=== PATIENT | female | born 2000 | race Two or more races ===

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

== ENCOUNTER 2018-01-28 21:55 | Emergency (ER) | payer SELFPAY ==
[2018-01-28] MEDS ORDERED: IBUPROFEN 600 MG TABLET PO ONE (23:11)
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
[2018-01-29 01:51] VITALS: BP 129/73
== END 2018-01-29 03:09 | disposition home or self-care (01) ==
LOC: ER 21:55
DX: M25.561 Pain in right knee (principal); X50.1XXA Overexertion from prolonged static or awkward postures, initial encounter; Y92.812 Truck as the place of occurrence of the external cause; J45.909 Unspecified asthma, uncomplicated
CPT/HCPCS: 99283

== ENCOUNTER 2019-03-26 19:59 | Inpatient (IN) | payer MEDICAID ==
[2019-03-26 20:40] LABS: ABSOLUTE BASOPHILS # (AUTO) 0.1 10^3/uL (0.0-0.2); ABSOLUTE LYMPHOCYTES (AUTO) 1.7 10^3/uL (0.5-4.7); ABSOLUTE MONOCYTES (AUTO) 1.3 10^3/uL (0.1-1.4); ABSOLUTE NEUT (AUTO) 6.8 10^3/uL (1.7-8.2); BASOPHILS % (AUTO) 0.7 % (0-2); EOSINOPHILS % (AUTO) 0.4 % (0-6); HEMATOCRIT 30.7 % (36.0-47.0); LYMPHOCYTES % (AUTO) 16.8 % (13-45); MEAN CORPUSCULAR HEMOGLOBIN 27.2 pg (27.0-33.4); MEAN CORPUSCULAR HGB CONC 32.6 g/dL (32.0-36.0); MEAN CORPUSCULAR VOLUME 84 fl (80-97); MONOCYTES % (AUTO) 13.1 % (3-13); PLATELET COUNT 246 10^3/uL (150-450); RED BLOOD COUNT 3.68 10^6/uL (3.72-5.28); RED CELL DISTRIBUTION WIDTH 14.7 % (11.5-14.0); TOTAL CELLS COUNTED % (AUTO) 100 %; WHITE BLOOD COUNT 9.9 10^3/uL (4.0-10.5)
[2019-03-26 20:42] LABS: APPEARANCE,URINE SLIGHTLY-CLOUDY; BILIRUBIN,URINE NEGATIVE (NEGATIVE); COLOR,URINE YELLOW; GLUCOSE, URINE NEGATIVE (NEGATIVE); KETONES,URINE NEGATIVE (NEGATIVE); LEUKOCYTE ESTERASE,URINE SMALL (NEGATIVE); NITRITE,URINE NEGATIVE (NEGATIVE); PROTEIN,URINE NEGATIVE (NEGATIVE); UR PRO/CREAT RATIO RESULT 0.5 mg/mg (0.0-0.2); URINE CREATININE 46.3 mg/dL (16-327); URINE PROTEIN 22.7 mg/dL (<12); URINE SPECIFIC GRAVITY 1.005; UROBILINOGEN,URINE NEGATIVE mg/dL (<2.0)
[2019-03-26 20:53] LABS: URINE AMPHETAMINES SCREEN NEGATIVE; URINE BARBITURATES SCREEN NEGATIVE; URINE BENZODIAZEPINES SCREEN NEGATIVE; URINE COCAINE SCREEN NEGATIVE; URINE MARIJUANA (THC) SCREEN NEGATIVE; URINE METHADONE SCREEN NEGATIVE; URINE PHENCYCLIDINE SCREEN NEGATIVE
[2019-03-26 21:03] LABS: ALANINE AMINOTRANSFERASE 25 U/L (9-52); ALBUMIN 3.7 g/dL (3.5-5.0); ALKALINE PHOSPHATASE 208 U/L (38-126); ANION GAP 8 (5-19); ASPARTATE AMINO TRANSFERASE 27 U/L (14-36); BILIRUBIN,DIRECT 0.2 mg/dL (0.0-0.4); BILIRUBIN,TOTAL 0.5 mg/dL (0.2-1.3); BLOOD UREA NITROGEN 6 mg/dL (7-20); CALCIUM 9.4 mg/dL (8.4-10.2); CARBON DIOXIDE 26 mmol/L (22-30); CHLORIDE 105 mmol/L (98-107); POTASSIUM 3.3 mmol/L (3.6-5.0); SODIUM 138.8 mmol/L (137-145); TOTAL PROTEIN 6.8 g/dL (6.3-8.2); URIC ACID 5.1 mg/dL (2.5-6.2)
[2019-03-26 21:09] LABS: GLUCOSE 66 mg/dL (75-110)
[2019-03-26] MEDS ORDERED: RINGERS SOLUTION,LACTATED 1,000 ML IV PRN (21:48)
[2019-03-26] MEDS ORDERED: DINOPROSTONE 10 MG VAGINAL INSERT.SR PV ONE (21:50)
[2019-03-26] MEDS ORDERED: DINOPROSTONE 10 MG VAGINAL INSERT.SR ONE (23:05)
[2019-03-26] MEDS ORDERED: ZOLPIDEM TARTRATE 5 MG TABLET ONE (23:15)
[2019-03-26] MEDS ORDERED: ZOLPIDEM TARTRATE 5 MG TABLET PO ONE (23:30)
[2019-03-27] MEDS ORDERED: HYDRALAZINE HCL INJ/PF 20 MG/1 ML SDV ONE ×3 (00:10→21:27)
[2019-03-27] MEDS ORDERED: HYDRALAZINE HCL INJ/PF 20 MG/1 ML SDV IV ONE ×2 (01:00→17:02)
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
[2019-03-27] MEDS ORDERED: OXYTOCIN/NORMAL SALINE 20 UNIT/1,000 ML RTUINJ IV PRN (12:53)
[2019-03-27] MEDS ORDERED: MISOPROSTOL 0.2 MG TABLET ONE (13:11)
[2019-03-27] MEDS ORDERED: OXYTOCIN/NORMAL SALINE 20 UNIT/1,000 ML RTUINJ ONE (13:11)
[2019-03-27] MEDS ORDERED: OXYTOCIN 10 UNIT/ML VIAL ONE (13:11)
[2019-03-27] MEDS ORDERED: LIDOCAINE 1% INJ-PF (10 MG/ML) 30 ML SDV ONE (13:11)
[2019-03-27 18:25] LABS: ABSOLUTE BASOPHILS # (AUTO) 0.1 10^3/uL (0.0-0.2); ABSOLUTE LYMPHOCYTES (AUTO) 1.6 10^3/uL (0.5-4.7); ABSOLUTE MONOCYTES (AUTO) 1.3 10^3/uL (0.1-1.4); ABSOLUTE NEUT (AUTO) 8.7 10^3/uL (1.7-8.2); BASOPHILS % (AUTO) 0.5 % (0-2); EOSINOPHILS % (AUTO) 0.2 % (0-6); HEMATOCRIT 31.8 % (36.0-47.0); HEMOGLOBIN 10.3 g/dL (12.0-15.5); LYMPHOCYTES % (AUTO) 13.4 % (13-45); MEAN CORPUSCULAR HEMOGLOBIN 26.9 pg (27.0-33.4); MEAN CORPUSCULAR HGB CONC 32.4 g/dL (32.0-36.0); MEAN CORPUSCULAR VOLUME 83 fl (80-97); MONOCYTES % (AUTO) 10.9 % (3-13); PLATELET COUNT 234 10^3/uL (150-450); RED BLOOD COUNT 3.83 10^6/uL (3.72-5.28); RED CELL DISTRIBUTION WIDTH 14.8 % (11.5-14.0); TOTAL CELLS COUNTED % (AUTO) 100 %; WHITE BLOOD COUNT 11.6 10^3/uL (4.0-10.5)
[2019-03-27 18:44] LABS: ALANINE AMINOTRANSFERASE 25 U/L (9-52); ALBUMIN 3.7 g/dL (3.5-5.0); ALKALINE PHOSPHATASE 235 U/L (38-126); ANION GAP 10 (5-19); ASPARTATE AMINO TRANSFERASE 26 U/L (14-36); BILIRUBIN,DIRECT 0.3 mg/dL (0.0-0.4); BILIRUBIN,TOTAL 0.6 mg/dL (0.2-1.3); BLOOD UREA NITROGEN 4 mg/dL (7-20); CALCIUM 9.5 mg/dL (8.4-10.2); CARBON DIOXIDE 23 mmol/L (22-30); CHLORIDE 106 mmol/L (98-107); GLUCOSE 78 mg/dL (75-110); POTASSIUM 3.3 mmol/L (3.6-5.0); SODIUM 138.8 mmol/L (137-145); URIC ACID 4.2 mg/dL (2.5-6.2)
[2019-03-27 19:26] LABS: UR PRO/CREAT RATIO RESULT 0.5 mg/mg (0.0-0.2); URINE CREATININE 63.4 mg/dL (16-327)
[2019-03-27] MEDS ORDERED: NALBUPHINE HCL INJ 10 MG/1 ML AMPULE ONE (20:58)
[2019-03-27] MEDS ORDERED: PROMETHAZINE HCL INJ 25 MG/1 ML VIAL ONE (20:58)
[2019-03-27] MEDS ORDERED: NALBUPHINE HCL INJ 10 MG/1 ML AMPULE INJ ONE (21:11)
[2019-03-27] MEDS ORDERED: PROMETHAZINE HCL INJ 25 MG/1 ML VIAL IV ONE (21:12)
[2019-03-27] MEDS ORDERED: HYDRALAZINE HCL INJ/PF 20 MG/1 ML SDV IV PRN (21:28)
[2019-03-27] MEDS ORDERED: FENTANYL CITRATE INJ/PF 100 MCG/2 ML AMPUL ONE (22:52)
[2019-03-27] MEDS ORDERED: PHENYLEPHRINE HCL INJ/PF 10 MG/1 ML SDV ONE (22:52)
[2019-03-27] MEDS ORDERED: EPHEDRINE SULFATE INJ 50 MG/1 ML AMPULE ONE (22:53)
[2019-03-27] MEDS ORDERED: FENTANYL/BUPIVACAINE/NS/PF 300 MCG/150 ML RTUINJ EPI ONE (22:53)
[2019-03-27] MEDS ORDERED: BUPIVACAINE HCL 0.25 % INJ/PF (2.5 MG/1 ML) 30 ML VIAL ONE (22:53)
[2019-03-28] MEDS ORDERED: MAGNESIUM SULFATE 20 GM/500 ML RTUINJ IV ONE ×3 (02:49→21:20)
[2019-03-28] MEDS ORDERED: MAGNESIUM SULFATE 4 GM/100 ML RTUPB IV ONE (03:00)
[2019-03-28] MEDS ORDERED: DIPH/PERTUSS(ACELL)/TETANUS VAC/PF 0.5 ML SYR (>=10YO) IM PRN (03:02)
[2019-03-28] MEDS ORDERED: ZOLPIDEM TARTRATE 5 MG TABLET PO PRN (03:02)
[2019-03-28] MEDS ORDERED: PROMETHAZINE HCL INJ 25 MG/1 ML VIAL IV PRN (03:02)
[2019-03-28] MEDS ORDERED: DIPHENHYDRAMINE HCL 25 MG CAPSULE PO PRN (03:02)
[2019-03-28] MEDS ORDERED: MISOPROSTOL 0.2 MG TABLET PR PRN (03:02)
[2019-03-28] MEDS ORDERED: MAGNESIUM HYDROXIDE SUSP 30 ML UDCUP PO PRN (03:02)
[2019-03-28] MEDS ORDERED: OXYTOCIN/NORMAL SALINE 20 UNIT/1,000 ML RTUINJ IV PRN (03:02)
[2019-03-28] MEDS ORDERED: PROMETHAZINE HCL 25 MG SUPP.RECT PR PRN (03:02)
[2019-03-28] MEDS ORDERED: ACETAMINOPHEN 650 MG SUPP.RECT PR PRN (03:02)
[2019-03-28] MEDS ORDERED: GLYCERIN/WITCH HAZEL LEAF 1 EACH MED..WIPE TP PRN (03:02)
[2019-03-28] MEDS ORDERED: ACETAMINOPHEN WITH CODEINE #3 TABLET PO PRN ×2 (03:02)
[2019-03-28] MEDS ORDERED: NA PHOS,M-B/NA PHOS,DI-BA (ADULT) 133 ML ENEMA PR PRN (03:02)
[2019-03-28] MEDS ORDERED: PROMETHAZINE HCL 25 MG TABLET PO PRN (03:02)
[2019-03-28] MEDS ORDERED: BENZOCAINE/MENTHOL AEROSOL SPRAY 56 ML TOP PRN (03:02)
[2019-03-28] MEDS ORDERED: MEASLES,MUMPS&RUBELLA VACC/PF 0.5 ML VIAL SUBCUT PRN (03:02)
[2019-03-28] MEDS ORDERED: DIBUCAINE 1% OINTMENT 56 GM TP PRN (03:02)
[2019-03-28] MEDS ORDERED: PSEUDOEPHEDRINE HCL 30 MG TABLET PO PRN (03:02)
[2019-03-28] MEDS ORDERED: RINGERS SOLUTION,LACTATED 1,000 ML IV PRN (03:03)
--- NOTE | 2019-03-28 06:30 | Delivery Summary ---
Del Sum A-C Datetime Report Generated by CPN: 03/28/2019 06:30 DELIVERY PERSONNEL DELIVERY PERSONNEL: [id number] Delivery Doctor:: Karlie Berg MD Labor and Delivery Nurse:: Cindi Chang, RNC Labor and Delivery Nurse:: Jovana Carranzamaricarmen, RN MATERNAL INFORMATION Delivery Anesthesia: Epidural Medications After Delivery: Pitocin Drip 20 Units/1000ml NSS; Cytotec 1000mcg Per Rectum/Vagina Estimated Blood Loss (ml): 600 Maternal Complications: Other Other Maternal Complications: induction for pre-eclampsia LABOR SUMMARY EDC: 04/02/2019 00:00 No. Babies in Womb: 1 Attempted: No Labor Anesthesia: Epidural LABOR INFORMATION Reason for Induction: Pre-Eclampsia Onset of Labor: 03/27/2019 21:00 Complete Dilatation: 03/28/2019 02:20 Cervical Ripening Agents: Cervidil Oxytocin: Induction Group B Beta Strep: negative Antibiotics # of Doses: N/A Antibiotics Time of Last Dose: N/A Name of Antibiotic Given: N/A Steroids Given: None Reason Steroids Not Administered: Not Applicable MEMBRANES Membranes Rupture Method: Spontaneous Rupture of Membranes: 03/27/2019 20:42 Length of Rupture (hr): 5.93 Amniotic Fluid Color: Clear Amniotic Fluid Amount: Scant Amniotic Fluid Odor: None STAGES OF LABOR Stage 1 hr: 5 Stage 1 min: 20 Stage 2 hr: 0 Stage 2 min: 18 Stage 3 hr: 0 Stage 3 min: 4 Total Time in Labor hr: 5 Total Time in Labor min: 42 VAGINAL DELIVERY Episiotomy: None Laceration #1: Perineal Laceration Extension #1: First Degree Laceration #2: None Laceration Extension #2: N/A Laceration #3: None Laceration Extension #3: N/A Laceration Repair: Yes Laceration Repair Note: 3-0 chromic times one to repair perineal laceration. Sponge Count Correct: Yes Sharps Count Correct: Yes CSECTION DELIVERY Primary Indication: N/A Secondary Indication: N/A CSection Incidence: N/A Labor: N/A Elective: N/A CSection Incision: N/A BABY A INFORMATION Delivery Date/Time: 03/28/2019 02:38 Method of Delivery: Vaginal Born in Route : No : N/A Forceps: N/A Vacuum Extraction: N/A Shoulder Dystocia : No PRESENTATION/POSITION BABY A Presentation: Cephalic Cephalic Presentation: Vertex Vertex Position: Right Occipital Anterior Breech Presentation: N/A PLACENTA INFORMATION BABY A Placenta Delivery Time : 03/28/2019 02:42 Placenta Method of Delivery: Spontaneous Placenta Status: Delivered SCORES BABY A Heart Rate 1 min: >100 bpm Resp Effort 1 min: Good Cry Reflex Irritability 1 min: Cough or Sneeze or Pulls Away Muscle Tone 1 min: Active Motion Color 1 min: Body [place], Extremities Blue Resuscitation Effort 1 min: Tactile Stimulation SCORE 1 MIN: 9 Heart Rate 5 min: >100 bpm Resp Effort 5 min: Good Cry Reflex Irritability 5 min: Cough or Sneeze or Pulls Away Muscle Tone 5 min: Active Motion Color 5 min: Body [place], Extremities Blue SCORE 5 MIN: 9 INFORMATION BABY A Gestational Age at Delivery: 39.2 Gestational Status: Full Term- 39- 40.6 Weeks Outcome : Liveborn Condition : Stable Infant Sex: Male IDENTIFICATION BABY A Verification Date/Time: 03/28/2019 03:08 ID Band Number: [id number] Mother's Name Verified: Yes Infant RN Verifying : E. Jilek RN/ A. Killinger RN WEIGHT/LENGTH BABY A Birthweight (gm): 3476 Infant Weight (lb): 7 Weight (oz): 11 Length (in): 20.00 Length (cm): 50.80 CORD INFORMATION BABY A No. Cord Vessels: nursery RN states 2 vessels Nuchal Cord : N/A Cord Blood Taken: Yes-For Eval (Mom's Blood Type - or O+) Suction: None ASSESSMENT BABY A Infant Complications: None Physical Findings at Delivery: Within Normal Limits Infant Respirations: Appears Normal Skin to Skin: Yes Skin to Skin Time (min): 15 Night Warehouse Manager/ALS Called : No Care By: D Bellavance RN Transferred To: Remains with Mother BABY B INFORMATION : N/A SIGNATURES Signature: with User ID: [email or web address]
[2019-03-28] MEDS ORDERED: NORMAL SALINE 1000 ML 500 ML IV ONE (12:32)
[2019-03-28 13:02] LABS: ABSOLUTE LYMPHOCYTES (AUTO) 1.5 10^3/uL (0.5-4.7); ABSOLUTE MONOCYTES (AUTO) 1.7 10^3/uL (0.1-1.4); ABSOLUTE NEUT (AUTO) 12.3 10^3/uL (1.7-8.2); BASOPHILS % (AUTO) 0.3 % (0-2); EOSINOPHILS % (AUTO) 0.1 % (0-6); HEMATOCRIT 23.2 % (36.0-47.0); LYMPHOCYTES % (AUTO) 9.8 % (13-45); MEAN CORPUSCULAR HEMOGLOBIN 26.9 pg (27.0-33.4); MEAN CORPUSCULAR HGB CONC 32.4 g/dL (32.0-36.0); MEAN CORPUSCULAR VOLUME 83 fl (80-97); PLATELET COUNT 203 10^3/uL (150-450); RED CELL DISTRIBUTION WIDTH 14.6 % (11.5-14.0); SEGMENTED NEUTROPHILS % (AUTO) 78.8 % (42-78); TOTAL CELLS COUNTED % (AUTO) 100 %; WHITE BLOOD COUNT 15.5 10^3/uL (4.0-10.5)
[2019-03-28] MEDS ORDERED: PRENATAL VITAMIN W DHA CAPSULE PO ONE (13:05)
[2019-03-28] MEDS ORDERED: FERROUS SULFATE 325 MG TABLET PO ONE (13:06)
[2019-03-28] MEDS ORDERED: SENNOSIDES/DOCUSATE 8.6-50 MG 1 EACH TABLET ONE (13:06)
[2019-03-28] MEDS ORDERED: IBUPROFEN 800 MG TABLET ONE (13:06)
[2019-03-28] MEDS ORDERED: DOCUSATE SODIUM 100 MG CAPSULE ONE (13:06)
[2019-03-28] MEDS ORDERED: LABETALOL HCL 200 MG TABLET ONE (13:07)
[2019-03-28] MEDS ORDERED: NORMAL SALINE 250 ML IV PRN (13:11)
[2019-03-28 13:14] LABS: HEMOGLOBIN 7.5 g/dL (12.0-15.5)
[2019-03-28 13:15] LABS: ALANINE AMINOTRANSFERASE 22 U/L (9-52); ALBUMIN 2.8 g/dL (3.5-5.0); ALKALINE PHOSPHATASE 176 U/L (38-126); ANION GAP 6 (5-19); ASPARTATE AMINO TRANSFERASE 23 U/L (14-36); BILIRUBIN,DIRECT 0.2 mg/dL (0.0-0.4); BILIRUBIN,TOTAL 0.4 mg/dL (0.2-1.3); BLOOD UREA NITROGEN 4 mg/dL (7-20); CALCIUM 8.1 mg/dL (8.4-10.2); CARBON DIOXIDE 26 mmol/L (22-30); CHLORIDE 104 mmol/L (98-107); GLUCOSE 80 mg/dL (75-110); SODIUM 136.4 mmol/L (137-145); TOTAL PROTEIN 5.4 g/dL (6.3-8.2)
[2019-03-28] MEDS: DOCUSATE SODIUM 100 MG CAPSULE PO SCH ×2 (13:16→23:41)
[2019-03-28] MEDS: FERROUS SULFATE 325 MG TABLET PO SCH ×2 (13:17→23:41)
[2019-03-28] MEDS: IBUPROFEN 800 MG TABLET PO SCH ×2 (13:17→23:41)
[2019-03-28] MEDS: PRENATAL VITAMIN W DHA CAPSULE PO SCH (13:17)
--- NOTE | 2019-03-28 13:17 | RADIOLOGY REPORT (SQ) ---
EXAM DESCRIPTION: CHEST SINGLE VIEW COMPLETED DATE/TIME: 03/28/2019 1:07 pm REASON FOR STUDY: cp,sob COMPARISON: None. NUMBER OF VIEWS: One view. TECHNIQUE: Single frontal radiographic view of the chest acquired. LIMITATIONS: None. FINDINGS: LUNGS AND PLEURA: No opacities, masses or pneumothorax. No pleural effusion. MEDIASTINUM AND HILAR STRUCTURES: No masses. Contour normal. HEART AND VASCULAR STRUCTURES: Heart normal in size. Normal vasculature. BONES: No acute findings. HARDWARE: None in the chest. OTHER: No other significant finding. IMPRESSION: NO SIGNIFICANT RADIOGRAPHIC FINDING IN THE CHEST. TECHNICAL DOCUMENTATION: JOB ID: [id number] [employer]- All Rights Reserved Reading location - IP/workstation name: [email or web address]
[2019-03-28] MEDS: SENNOSIDES/DOCUSATE 8.6-50 MG 1 EACH TABLET PO SCH (13:18)
[2019-03-28] MEDS: LABETALOL HCL 200 MG TABLET PO SCH (13:18)
[2019-03-28 13:20] LABS: POTASSIUM 2.9 mmol/L (3.6-5.0)
--- NOTE | 2019-03-28 13:28 | Delivery Summary ---
Del Sum A-C Datetime Report Generated by CPN: 03/28/2019 13:28 DELIVERY PERSONNEL DELIVERY PERSONNEL: [id number] Delivery Doctor:: Karlie Berg MD Labor and Delivery Nurse:: Cindi Chang, RNC Labor and Delivery Nurse:: Jovana Carranzamaricarmen, RN MATERNAL INFORMATION Delivery Anesthesia: Epidural Medications After Delivery: Pitocin Drip 20 Units/1000ml NSS; Cytotec 1000mcg Per Rectum/Vagina Estimated Blood Loss (ml): 600 Delivery QBL Comment: cytotec 1000 mcg given per rectum Maternal Complications: Other Other Maternal Complications: induction for pre-eclampsia LABOR SUMMARY EDC: 04/02/2019 00:00 No. Babies in Womb: 1 Attempted: No Labor Anesthesia: Epidural LABOR INFORMATION Reason for Induction: Pre-Eclampsia Onset of Labor: 03/27/2019 21:00 Complete Dilatation: 03/28/2019 02:20 Cervical Ripening Agents: Cervidil Oxytocin: Induction Group B Beta Strep: negative Antibiotics # of Doses: N/A Antibiotics Time of Last Dose: N/A Name of Antibiotic Given: N/A Steroids Given: None Reason Steroids Not Administered: Not Applicable MEMBRANES Membranes Rupture Method: Spontaneous Rupture of Membranes: 03/27/2019 20:42 Length of Rupture (hr): 5.93 Amniotic Fluid Color: Clear Amniotic Fluid Amount: Scant Amniotic Fluid Odor: None STAGES OF LABOR Stage 1 hr: 5 Stage 1 min: 20 Stage 2 hr: 0 Stage 2 min: 18 Stage 3 hr: 0 Stage 3 min: 4 Total Time in Labor hr: 5 Total Time in Labor min: 42 VAGINAL DELIVERY Episiotomy: None Laceration #1: Perineal Laceration Extension #1: First Degree Laceration #2: None Laceration Extension #2: N/A Laceration #3: None Laceration Extension #3: N/A Laceration Repair: Yes Laceration Repair Note: 3-0 chromic times one to repair perineal laceration. Sponge Count Correct: Yes Sharps Count Correct: Yes CSECTION DELIVERY Primary Indication: N/A Secondary Indication: N/A CSection Incidence: N/A Labor: N/A Elective: N/A CSection Incision: N/A BABY A INFORMATION Infant Delivery Date/Time: 03/28/2019 02:38 Method of Delivery: Vaginal Method of Delivery: Vaginal Born in Route : No : N/A Forceps: N/A Vacuum Extraction: N/A Shoulder Dystocia : No PRESENTATION/POSITION BABY A Presentation: Cephalic Presentation: Cephalic Cephalic Presentation: Vertex Vertex Position: Right Occipital Anterior Breech Presentation: N/A PLACENTA INFORMATION BABY A Placenta Delivery Time : 03/28/2019 02:42 Placenta Method of Delivery: Spontaneous Placenta Status: Delivered SCORES BABY A Heart Rate 1 min: >100 bpm Resp Effort 1 min: Good Cry Reflex Irritability 1 min: Cough or Sneeze or Pulls Away Muscle Tone 1 min: Active Motion Color 1 min: Body [place], Extremities Blue Resuscitation Effort 1 min: Tactile Stimulation SCORE 1 MIN: 9 Heart Rate 5 min: >100 bpm Resp Effort 5 min: Good Cry Reflex Irritability 5 min: Cough or Sneeze or Pulls Away Muscle Tone 5 min: Active Motion Color 5 min: Body [place], Extremities Blue SCORE 5 MIN: 9 INFORMATION BABY A Gestational Age at Delivery: 39.2 Gestational Status: Full Term- 39- 40.6 Weeks Outcome : Liveborn Infant Condition : Stable Sex: Male Sex: Male IDENTIFICATION BABY A Verification Date/Time: 03/28/2019 03:08 ID Band Number: [id number] Mother's Name Verified: Yes RN Verifying Infant: E. Tralek RN/ A. Killinger RN WEIGHT/LENGTH BABY A Infant Birthweight (gm): 3476 Weight (lb): 7 Infant Weight (oz): 11 Infant Length (in): 20.00 Length (cm): 50.80 CORD INFORMATION BABY A No. Cord Vessels: nursery RN states 2 vessels Nuchal Cord : N/A Cord Blood Taken: Yes-For Eval (Mom's Blood Type - or O+) Suction: None ASSESSMENT BABY A Complications: None Physical Findings at Delivery: Within Normal Limits Infant Respirations: Appears Normal Skin to Skin: Yes Skin to Skin Time (min): 15 Polygraph Operator/ALS Called : No Infant Care By: D Bellavance RN Transferred To: Remains with Mother BABY B INFORMATION : N/A SIGNATURES Signature: with User ID: [email or web address]
--- NOTE | 2019-03-28 13:30 | PDOC CONSULTATION ---
Consultation Consult Date: 03/28/19 Attending physician:: kimani Provider Consulted: CARLEE CASTELLANO Consult reason:: tahcycardia History of Present Illness Admission Date/PCP: 03/26/19 21:50 JOSE BUTTS MD Patient complains of: chest pain History of Present Illness: PALLAVI GONZALEZ is a 18 year old female with no significant past medical history who was admitted for preeclampsia. She delivered yesterday. She was apparently fine but started having tachycardia early this morning in the 130s to 140s. Her blood pressures have been running in the 1 50-1 60 systolic. She is currently on magnesium sulfate drip. Due to persistent tachycardia, hospitalist service was consulted. Upon encounter, patient appears comfortable. She did say that she had short- lived midsternal chest pain which was pressure-like early this morning. She is currently chest pain at the moment. Currently, blood pressure is in the 150s systolic. Heart rate is in 129. Currently saturating well at 97% on room air. She denies shortness of breath. Past Medical History Pulmonary Medical History: Reports: Asthma Neurological Medical History: Reports: Migraine GI Medical History: Reports: Gastroesophageal Reflux Disease Psychiatric Medical History: Reports: Depression Past Surgical History Past Surgical History: Reports: Tonsillectomy Social History Smoking Status: Never Smoker Family History Family History: Reviewed & Not Pertinent Parental Family History Reviewed: Yes - No premature CAD Children Family History Reviewed: No Sibling(s) Family History Reviewed.: No Medication/Allergy Home Medications: Vits96/Iron Fum/Folic [ Tablet] 1 tab PO DAILY 03/27/19 Allergies/Adverse Reactions: No Known Allergies Allergy (Verified 03/27/19 09:14) Review of Systems All systems: reviewed and no additional remarkable complaints except as stated - As mentioned in HPI Physical Exam Vital Signs: Intake & Output 03/27/19 03/28/19 03/29/19 06:59 06:59 06:59 Weight 219 lb 12.814 oz General appearance: PRESENT: no acute distress, well-developed, well-nourished Head exam: PRESENT: atraumatic, normocephalic Eye exam: PRESENT: conjunctiva pink, EOMI, PERRLA. ABSENT: scleral icterus Ear exam: PRESENT: normal external ear exam Mouth exam: PRESENT: moist, tongue midline Neck exam: ABSENT: carotid bruit, JVD, lymphadenopathy, thyromegaly Respiratory exam: PRESENT: clear to auscultation luca. ABSENT: rales, rhonchi, wheezes Cardiovascular exam: PRESENT: RRR, tachycardia. ABSENT: diastolic murmur, rubs, systolic murmur Pulses: PRESENT: normal dorsalis pedis pul GI/Abdominal exam: PRESENT: normal bowel sounds, soft. ABSENT: distended, guarding, mass, organolmegaly, rebound, tenderness Rectal exam: PRESENT: deferred Neurological exam: PRESENT: alert, awake, oriented to person, oriented to place, oriented to time, oriented to situation, CN II-XII grossly intact. ABSENT: motor sensory deficit Results Laboratory Results: 03/28/19 12:42 03/28/19 12:42 03/26/19 03/27/19 03/27/19 20:18 17:59 17:59 WBC 11.6 H RBC 3.83 Hgb 10.3 L Hct 31.8 L MCV 83 MCH 26.9 L MCHC 32.4 RDW 14.8 H Plt Count 234 Seg Neutrophils % 75.0 Lymphocytes % 13.4 Monocytes % 10.9 Eosinophils % 0.2 Basophils % 0.5 Absolute Neutrophils 8.7 H Absolute Lymphocytes 1.6 Absolute Monocytes 1.3 Absolute Eosinophils 0.0 Absolute Basophils 0.1 Sodium 138.8 Potassium 3.3 L Chloride 106 Carbon Dioxide 23 Anion Gap 10 BUN 4 L Creatinine 0.64 Est GFR ( Amer) > 60 Est GFR (Non-Af Amer) > 60 Glucose 78 Uric Acid 4.2 Calcium 9.5 Total Bilirubin 0.6 AST 26 ALT 25 Alkaline Phosphatase 235 H Total Protein 7.0 Albumin 3.7 Blood Type O POSITIVE Antibody Screen NEGATIVE 03/28/19 03/28/19 12:42 12:42 WBC 15.5 H RBC 2.80 L Hgb 7.5 L D Hct 23.2 L MCV 83 MCH 26.9 L MCHC 32.4 RDW 14.6 H Plt Count 203 Seg Neutrophils % 78.8 H Lymphocytes % 9.8 L Monocytes % 11.0 Eosinophils % 0.1 Basophils % 0.3 Absolute Neutrophils 12.3 H Absolute Lymphocytes 1.5 Absolute Monocytes 1.7 H Absolute Eosinophils 0.0 Absolute Basophils 0.0 Sodium 136.4 L Potassium 2.9 L* Chloride 104 Carbon Dioxide 26 Anion Gap 6 BUN 4 L Creatinine 0.66 Est GFR ( Amer) > 60 Est GFR (Non-Af Amer) > 60 Glucose 80 Uric Acid Calcium 8.1 L Total Bilirubin 0.4 AST 23 ALT 22 Alkaline Phosphatase 176 H Total Protein 5.4 L Albumin 2.8 L Blood Type Antibody Screen Impressions: Chest X-Ray 03/28/19 12:33 IMPRESSION: NO SIGNIFICANT RADIOGRAPHIC FINDING IN THE CHEST. Assessment and Plan - Diagnosis (1) Tachycardia Is this a current diagnosis for this admission?: Yes Plan: As mentioned patient is currently tachycardic and is the reason for hospitalist consult. Possibly physiologic in nature. Noted that patient had a total blood loss of 1096 cc per RN. Will check a stat CBC and see if acute blood loss anemia is causing her tachycardia. Will also check a CMP and TSH. EKG done and showed sinus tachycardia with minor T wave inversions. Will check troponin but likely these T wave inversions are strain changes related to the tachycardia. We will also give a 500 cc fluid challenge to see if this will improve the tachycardia. No immediate concerns for PE at this time as patient does not have any shortness of breath, leg pain and she is saturating well on room air. (2) Pre-eclampsia Is this a current diagnosis for this admission?: Yes Plan: Primary service managing. Currently on magnesium sulfate drip. - Time Time Spent with patient: 25-34 minutes
[2019-03-28] MEDS ORDERED: POTASSIUM CHLORIDE 10 MEQ CAPSULE.ER PO ONE (15:30)
[2019-03-28] MEDS ORDERED: FUROSEMIDE INJ/PF 40 MG/4 ML SDV ONE (17:23)
[2019-03-28] MEDS: MAGNESIUM SULFATE 20 GM/500 ML RTUINJ IV PRN ×2 (17:54→21:23)
[2019-03-28] MEDS ORDERED: FUROSEMIDE INJ/PF 20 MG/2 ML SDV IV ONE (18:00)
[2019-03-28 18:07] LABS: FREE T3 2.88 pg/mL (2.77-5.27)
[2019-03-28 18:22] LABS: FREE T4 (FREE THYROXINE) 0.94 ng/dL (0.78-2.19)
[2019-03-28 20:23] LABS: POTASSIUM 2.8 mmol/L (3.6-5.0)
[2019-03-28 20:45] LABS: URIC ACID 4.5 mg/dL (2.5-6.2)
--- NOTE | 2019-03-28 20:46 | EKG REPORT ---
SEVERITY:- ABNORMAL ECG - SINUS TACHYCARDIA CONSIDER LEFT VENTRICULAR HYPERTROPHY BORDERLINE PROLONGED QT INTERVAL : Confirmed by: Cheri Cartwright MD 28-Mar-2019 20:46:21
[2019-03-28] MEDS: POTASSI CL 20 MEQ/50 ML RIDER 20 MEQ/50 ML RTUPB IV SCH ×2 (22:00→22:57)
[2019-03-28] MEDS: FAMOTIDINE 20 MG TABLET PO SCH (23:40)
[2019-03-29] MEDS ORDERED: NIFEDIPINE 30 MG TAB.ER.24 PO SCH (07:01)
[2019-03-29 07:04] LABS: HEMATOCRIT 26.5 % (36.0-47.0); HEMOGLOBIN 8.8 g/dL (12.0-15.5); MEAN CORPUSCULAR HGB CONC 33.4 g/dL (32.0-36.0); MEAN CORPUSCULAR VOLUME 84 fl (80-97); PLATELET COUNT 177 10^3/uL (150-450); RED BLOOD COUNT 3.15 10^6/uL (3.72-5.28); RED CELL DISTRIBUTION WIDTH 15.6 % (11.5-14.0); WHITE BLOOD COUNT 13.6 10^3/uL (4.0-10.5)
[2019-03-29 07:33] LABS: ANION GAP 7 (5-19); BLOOD UREA NITROGEN 4 mg/dL (7-20); CALCIUM 7.7 mg/dL (8.4-10.2); CARBON DIOXIDE 26 mmol/L (22-30); CHLORIDE 106 mmol/L (98-107); GLUCOSE 76 mg/dL (75-110); POTASSIUM 3.2 mmol/L (3.6-5.0); SODIUM 138.8 mmol/L (137-145)
[2019-03-29] MEDS ORDERED: POTASSIUM CHLORIDE 10 MEQ CAPSULE.ER PO ONE (08:42)
[2019-03-29] MEDS: DOCUSATE SODIUM 100 MG CAPSULE PO SCH ×2 (09:51→18:48)
[2019-03-29] MEDS: FERROUS SULFATE 325 MG TABLET PO SCH ×2 (09:51→18:48)
[2019-03-29] MEDS: FAMOTIDINE 20 MG TABLET PO SCH ×2 (09:51→23:05)
[2019-03-29] MEDS: SENNOSIDES/DOCUSATE 8.6-50 MG 1 EACH TABLET PO SCH (09:51)
[2019-03-29] MEDS: PRENATAL VITAMIN W DHA CAPSULE PO SCH (09:52)
[2019-03-29] MEDS: LABETALOL HCL 200 MG TABLET PO SCH ×3 (09:52→23:05)
[2019-03-29] MEDS: IBUPROFEN 800 MG TABLET PO SCH ×3 (13:26→23:05)
--- NOTE | 2019-03-29 19:37 | PDOC PROGRESS REPORT ---
Subjective Progress Note for:: 03/29/19 Subjective:: No acute event overnight. Denies chest pain or SOB. HR in the 80s. She got transfused yesterday. Reason For Visit: Physical Exam Vital Signs: Temp Pulse Resp BP Pulse Ox 97.8 F 105 H 16 150/78 H 99 03/29/19 09:54 03/29/19 17:00 03/29/19 01:33 03/29/19 17:00 03/29/19 09:54 Intake & Output 03/28/19 03/29/19 03/30/19 06:59 06:59 06:59 Intake Total 474 Balance 474 Weight 219 lb 12.814 oz General appearance: PRESENT: no acute distress, well-developed, well-nourished Head exam: PRESENT: atraumatic, normocephalic Eye exam: PRESENT: conjunctiva pink, EOMI, PERRLA. ABSENT: scleral icterus Ear exam: PRESENT: normal external ear exam Mouth exam: PRESENT: moist, tongue midline Neck exam: ABSENT: carotid bruit, JVD, lymphadenopathy, thyromegaly Respiratory exam: PRESENT: clear to auscultation luca. ABSENT: rales, rhonchi, wheezes Cardiovascular exam: PRESENT: RRR. ABSENT: diastolic murmur, rubs, systolic murmur Pulses: PRESENT: normal dorsalis pedis pul GI/Abdominal exam: PRESENT: normal bowel sounds, soft. ABSENT: distended, guarding, mass, organolmegaly, rebound, tenderness Rectal exam: PRESENT: deferred Extremities exam: PRESENT: full ROM. ABSENT: calf tenderness, clubbing, pedal edema Neurological exam: PRESENT: alert, awake, oriented to person, oriented to place, oriented to time, oriented to situation, CN II-XII grossly intact. ABSENT: motor sensory deficit Results Laboratory Results: 03/29/19 06:54 03/29/19 16:01 03/26/19 03/28/19 03/28/19 20:18 19:54 19:54 WBC RBC Hgb Hct MCV MCH MCHC RDW Plt Count Sodium Potassium 2.8 L* Chloride Carbon Dioxide Anion Gap BUN Creatinine Est GFR ( Amer) Est GFR (Non-Af Amer) Glucose Uric Acid 4.5 Calcium Magnesium 4.9 H* Blood Type O POSITIVE Antibody Screen NEGATIVE 03/29/19 03/29/1903/29/19 06:54 06:54 16:01 WBC 13.6 H RBC 3.15 L Hgb 8.8 L Hct 26.5 L MCV 84 MCH 28.0 MCHC 33.4 RDW 15.6 H Plt Count 177 Sodium 138.8 Potassium 3.2 L 3.8 Chloride 106 Carbon Dioxide 26 Anion Gap 7 BUN 4 L Creatinine 0.62 Est GFR ( Amer) > 60 Est GFR (Non-Af Amer) > 60 Glucose 76 Uric Acid Calcium 7.7 L Magnesium Blood Type Antibody Screen 03/28/19 03/28/19 12:33 19:54 Troponin I 0.015 < 0.012 Impressions: Chest X-Ray 03/28/19 12:33 IMPRESSION: NO SIGNIFICANT RADIOGRAPHIC FINDING IN THE CHEST. Assessment and Plan - Diagnosis (1) Tachycardia Is this a current diagnosis for this admission?: Yes Plan: Possibly physiologic. Acute anemia likely contributory. S/P 1 unit of pRBC. Initial slightly elevated troponin was likely more from demand ischemia from significant tachycardia. Second troponin is normal. (2) Pre-eclampsia Is this a current diagnosis for this admission?: Yes Plan: Primary service managing. (3) Hypokalemia Is this a current diagnosis for this admission?: Yes - Time Time Spent with patient: 15-24 minutes
[2019-03-30] MEDS: IBUPROFEN 800 MG TABLET PO SCH ×3 (04:05→14:07)
--- NOTE | 2019-03-30 11:45 | PDOC DISCHARGE SUMMARY ---
Final Diagnosis Discharge Date: 03/30/19 - PP Day#2, doing well, up ambulating w/out difficulty. No c/o dizziness, tachycardia or SOB. O+, rubella Immune, bottlefeeding, Hx of Pre-eclampsia, requiring Magnessium Sulfate during labor. Hypokalemia as well as acute bloodloss anemia. Pt was tranfused. Low TSH noted w / normal Free T4. - Final Diagnosis (1) (spontaneous vaginal delivery) Is this a current diagnosis for this admission?: Yes (2) Hypokalemia Is this a current diagnosis for this admission?: Yes (3) Transfusion of blood during current hospitalisation Is this a current diagnosis for this admission?: Yes (4) Acute blood loss anemia Is this a current diagnosis for this admission?: Yes (5) Tachycardia Is this a current diagnosis for this admission?: Yes (6) Pre-eclampsia Is this a current diagnosis for this admission?: Yes (7) Anemia affecting Is this a current diagnosis for this admission?: Yes Discharge Data - Discharge Medication Prescriptions: Ibuprofen [Motrin 800 mg Tablet] 800 mg PO Q8 #60 tablet Iron,Carb/Vit C/Vit B12/Folic [Icar-C Plus Tablet] 1 each PO DAILY #30 tablet Nifedipine [Procardia XL 30 mg Tablet] 30 mg PO DAILY #30 tab.er.24 Home Medications: Vits96/Iron Fum/Folic [ Tablet] 1 tab PO DAILY 03/27/19 Ibuprofen [Motrin 800 mg Tablet] 800 mg PO Q8 #60 tablet 03/30/19 Iron,Carb/Vit C/Vit B12/Folic [Icar-C Plus Tablet] 1 each PO DAILY #30 tablet 03/30/19 Nifedipine [Procardia XL 30 mg Tablet] 30 mg PO DAILY #30 tab.er.24 03/30/19 - Diagnosis Test Laboratory: Temp Pulse Resp BP Pulse Ox 98.1 F 97 17 148/88 H 98 03/30/19 09:21 03/30/19 09:21 03/30/19 09:21 03/30/19 09:21 03/30/19 09:21 03/26/19 03/26/19 03/27/19 20:09 20:18 17:59 RBC 3.68 L 3.83 Hgb 10.0 L 10.3 L Hct 30.7 L 31.8 L Urine Opiates Screen NEGATIVE 03/28/19 03/29/19 12:42 06:54 RBC 2.80 L 3.15 L Hgb 7.5 L D 8.8 L Hct 23.2 L 26.5 L Urine Opiates Screen - Discharge information/Instructions Discharge Activity: Activity As Tolerated, No Lifting Over 10 Pounds, Pelvic Rest Discharge Diet: As Tolerated, Regular Disposition: HOME, SELF-CARE Follow up with: [facility] in: 1, Weeks - for BP check, Repeat TSH in 4 wks
--- NOTE | 2019-03-30 12:11 | PDOC PROGRESS REPORT ---
Subjective Progress Note for:: 03/30/19 Subjective:: 03/29: No acute event overnight. Denies chest pain or SOB. HR in the 80s. She got transfused yesterday. 03/30: She continues to feel better. She is at her baseline. Denies chest pain or shortness of breath. She saturating well on room air. OB plans to discharge her today. Only remarkable finding was a low TSH but with normal T4 and T3. This is likely subclinical hyperthyroidism. She does not have tremors, weight loss or other signs of clinical hyperthyroidism. Her tachycardia was also acute in nature and was deemed to be more physiologic in cause. To establish and confirm diagnosis before considering antithyroid treatment, she will need a repeat thyroid panel in 2 to 4 weeks with PCP. If she needs nifedipine for blood pressure control for her pre-eclmapsia, recommend discharging her on propranolol as well as nifedipine can also contribute to the tachycardia. Reason For Visit: Physical Exam Vital Signs: Temp Pulse Resp BP Pulse Ox 98.1 F 97 17 148/88 H 98 03/30/19 09:21 03/30/19 09:21 03/30/19 09:21 03/30/19 09:21 03/30/19 09:21 Intake & Output 03/29/19 03/30/19 03/31/19 06:59 06:59 06:59 Intake Total 474 1000 Balance 474 1000 General appearance: PRESENT: no acute distress, well-developed, well-nourished Head exam: PRESENT: atraumatic, normocephalic Eye exam: PRESENT: conjunctiva pink, EOMI, PERRLA. ABSENT: scleral icterus Ear exam: PRESENT: normal external ear exam Mouth exam: PRESENT: moist, tongue midline Neck exam: ABSENT: carotid bruit, JVD, lymphadenopathy, thyromegaly Respiratory exam: PRESENT: clear to auscultation luca. ABSENT: rales, rhonchi, wheezes Cardiovascular exam: PRESENT: RRR. ABSENT: diastolic murmur, rubs, systolic murmur Pulses: PRESENT: normal dorsalis pedis pul GI/Abdominal exam: PRESENT: normal bowel sounds, soft. ABSENT: distended, guarding, mass, organolmegaly, rebound, tenderness Rectal exam: PRESENT: deferred Extremities exam: PRESENT: full ROM. ABSENT: calf tenderness, clubbing, pedal edema Neurological exam: PRESENT: alert, awake, oriented to person, oriented to place, oriented to time, oriented to situation, CN II-XII grossly intact. ABSENT: motor sensory deficit Results Laboratory Results: 03/29/19 06:54 03/29/19 16:01 03/29/19 16:01 Potassium 3.8 03/28/19 03/28/19 12:33 19:54 Troponin I 0.015 < 0.012 Impressions: Chest X-Ray 03/28/19 12:33 IMPRESSION: NO SIGNIFICANT RADIOGRAPHIC FINDING IN THE CHEST. Assessment and Plan - Diagnosis (1) Subclinical hyperthyroidism Is this a current diagnosis for this admission?: Yes Plan: Only remarkable finding was a low TSH but with normal T4 and T3. This is likely subclinical hyperthyroidism. She does not have tremors, weight loss or other signs of clinical hyperthyroidism. Her tachycardia was also acute in nature and was deemed to be more physiologic in cause. To establish and confirm diagnosis before considering antithyroid treatment, she will need a repeat thyroid panel in 2 to 4 weeks with PCP. If she needs nifedipine for blood pressure control for her pre-eclmapsia, recommend discharging her on propranolol as well as nifedi pine can also contribute to the tachycardia. (2) Tachycardia Is this a current diagnosis for this admission?: Yes Plan: Possibly physiologic. Acute anemia likely contributory. S/P 1 unit of pRBC. Initial slightly elevated troponin was likely more from demand ischemia from significant tachycardia. Second troponin is normal. (3) Pre-eclampsia Is this a current diagnosis for this admission?: Yes Plan: Resolved. Primary service managing. (4) Hypokalemia Is this a current diagnosis for this admission?: Yes Plan: Resolved. - Time Time Spent with patient: 15-24 minutes
[2019-03-30 14:46] VITALS: BP 150/78
== END 2019-03-30 15:45 | disposition home or self-care (01) | DRG 807 ==
LOC: LC 19:59 → LR 21:50 → 2S 03-29 08:10
PROVIDERS: ADMIT Obstetrics & Gynecology; ATTEND Obstetrics & Gynecology
PROC: 10E0XZZ Delivery of Products of Conception, External Approach (ICD-10-PCS; principal; 2019-03-28)
PROC: 0HQ9XZZ Repair Perineum Skin, External Approach (ICD-10-PCS; 2019-03-28)
PROC: 3E033VJ Introduction of Other Hormone into Peripheral Vein, Percutaneous Approach (ICD-10-PCS; 2019-03-28)
PROC: 4A1HX4Z Monitoring of Products of Conception, Cardiac Electrical Activity, External Approach (ICD-10-PCS; 2019-03-28)
PROC: 30233N1 Transfusion of Nonautologous Red Blood Cells into Peripheral Vein, Percutaneous Approach (ICD-10-PCS; 2019-03-28)
DX: O14.93 Unspecified pre-eclampsia, third trimester (principal); Z37.0 Single live birth; O99.344 Other mental disorders complicating childbirth; E87.6 Hypokalemia; F41.8 Other specified anxiety disorders; O70.0 First degree perineal laceration during delivery; R00.0 Tachycardia, unspecified; R94.6 Abnormal results of thyroid function studies; K21.9 Gastro-esophageal reflux disease without esophagitis; J45.909 Unspecified asthma, uncomplicated; G43.909 Migraine, unspecified, not intractable, without status migrainosus; Z3A.39 39 weeks gestation of pregnancy
CPT/HCPCS: 36415; 36430; 71045; 80048; 80053; 80307; 81001; 82570; 82962; 83615; 83735; 84132; 84156; 84439; 84443; 84481; 84484; 84550; 85025; 85027; 86592; 86850; 86900; 86901; 86920; 93005; 93010; J0360; J1940; J2300; J2370; J2550; J2590; J3010; J3475; J3480; J3490; P9016